=== PATIENT | female | born 1970 | race Two or more races ===

== ENCOUNTER 2025-07-17 17:50 | Emergency (ER) | payer OTHER ==
[~2025-07-17] VITALS: Ht 165.1 cm; Wt 68.0 kg
[2025-07-17] MEDS ORDERED: 0.9 % SODIUM CHLORIDE 1,000 ML IV ONE (19:45)
[2025-07-17] MEDS ORDERED: EPINEPHRINE HCL/PF 1 MG/ML AMPUL IV SCH (19:45)
[2025-07-17] MEDS ORDERED: SODIUM BICARBONATE 1 MEQ/ML DISP.SYRIN 50ML IV ONE (19:45)
== END 2025-07-17 18:30 | disposition expired ==
LOC: ER 17:50 → EDSEX 18:54 → ER 18:54
DX: I46.9 Cardiac arrest, cause unspecified (principal); E66.01 Morbid (severe) obesity due to excess calories